=== PATIENT | male | born 1980 | race Caucasian/White ===

== ENCOUNTER 2016-05-27 14:30 | Emergency (ER) | payer BC, OTHER ==
[~2016-05-27] VITALS: Ht 195.6 cm; Wt 117.7 kg
[2016-05-27 14:36] VITALS: TEMP 37.1; Ht 195.6 cm; Wt 117.7 kg
--- NOTE | 2016-05-27 14:59 | EMERGENCY ROOM VISIT NOTE ---
History Report prepared by Kimberlee: Byron Fox Under the Supervision of: Dr. Ubaldo Man M.D. First contact with patient: 14:41 Chief Complaint: MENTAL HEALTH EVALUATION Stated Complaint: DELUSIONAL MANIX BIPOLAR EPISODE History of Present Illness The patient is a 35 year old male with a history of bipolar disorder who presents to the Emergency Room for an acute mental health evaluation today. The patient is currently having a manic episode to the point that he is becoming delusional, as per his father. The patient's states that he is worried that Satan is after him and his family. He admits that he has been hearing voices in his head. The patient has had increased stress lately, which his family believes may be contributing to his symptoms. His is expecting, and he was almost in a car accident this morning. The patient had similar manic complaints in the past. The patient has been off of his medications for two years now. His therapist is aware and is okay with him being off of his medications. He was on lithium in the past, which he did not tolerate well. The patient was admitted as an inpatient for mental health twice in the past. The patient has not been sleeping well for the past two days. He had been eating well. He states that he has been feeling depressed since this morning. The patient told his today that he wanted to , however he is not having thoughts of suicide. He also denies homicidal ideations. The patient does not have any medical complaints and denies any medical problems. He does not use tobacco, alcohol, or other drugs. Source of History: patient, family, spouse/significant other Onset: today Position: other (psyche) Quality: other (mental health evaluation) Timing: other (acute) Modifying Factors (Worsening): other (stress) Note: Denies SI or HI. Review of Systems See HPI for pertinent positives & negatives. A total of 10 systems reviewed and were otherwise negative. Past Medical & Surgical Medical Problems: (1) Bipolar disorder Old medical records were reviewed. Nurse's notes were reviewed and I agree with. Family History No pertinent family history Social History Smoking Status: Unknown if Ever Smoked Alcohol Use: none Drug Use: none Marital Status: Occupation Status: employed Current/Historical Medications Miscellaneous Medications None (Patient States No Home Meds) Allergies Coded Allergies: No Known Allergies (Unverified , 05/27/16) Physical Exam Vital Signs Date Time Temp Pulse Resp B/P Pulse Ox O2 Delivery O2 Flow Rate FiO2 05/27/16 23:59 72 16 121/76 98 05/27/16 23:06 79 12 119/78 96 05/27/16 21:00 80 14 126/70 99 05/27/16 19:00 94 14 135/82 98 05/27/16 14:36 37.1 102 20 146/86 94 Room Air Physical Exam General: Young male, no acute distress, poor eye contact, answers questions appropriately but delusionally at time. Reports hearing voices. HEENT: Normal cephalic atraumatic. Pupils are equal round and reactive to light. Sclerae anicteric. Extraocular movements are intact. Oropharynx is pink with moist mucous membranes. No swelling of the mouth lips or tongue. Neck: Supple with a midline trachea. No meningeal signs or stiffness, no JVD or bruits. No Stridor. Chest: Clear to auscultation bilaterally. No wheezes or rhonchi. No increased work of breathing. Heart: regular rate and rhythm. Abdomen: Soft nontender, nondistended without rebound guarding or rigidity. Extremities: No cyanosis clubbing or edema. No calf tenderness or assymetry Spine/Back. Non tender to palpation. No CVA tenderness Skin: Good turgor without rashes. Neurologic exam: Cranial nerves two through 12 are intact. Motor and sensation are intact and symmetrical throughout. No tremor. Psychiatric: Denies suicidal or homicidal ideations, paranoid and delusional thinking. Medical Decision & Procedures Laboratory Results 05/27/16 15:39 Red Blood Count 4.95, Mean Corpuscular Volume 83.8, Mean Corpuscular Hemoglobin 31.3, Mean Corpuscular Hemoglobin Concent 37.3, Mean Platelet Volume 10.0, Neutrophils (%) (Auto) 74.7, Lymphocytes (%) (Auto) 18.9, Monocytes (%) (Auto) 5.9, Eosinophils (%) (Auto) 0.1, Basophils (%) (Auto) 0.3, Neutrophils # (Auto) 5.20, Lymphocytes # (Auto) 1.32, Monocytes # (Auto) 0.41, Eosinophils # (Auto) 0.01, Basophils # (Auto) 0.02 05/27/16 15:39 Test 05/27/16 15:39 05/27/16 15:40 White Blood Count 6.97 K/uL (4.8-10.8) Red Blood Count 4.95 M/uL (4.7-6.1) Hemoglobin 15.5 g/dL (14.0-18.0) Hematocrit 41.5 % (42-52) Mean Corpuscular Volume 83.8 fL (80-100) Mean Corpuscular Hemoglobin 31.3 pg (25-34) Mean Corpuscular Hemoglobin Concent 37.3 g/dl (32-36) Platelet Count 183 K/uL (130-400) Mean Platelet Volume 10.0 fL (7.4-10.4) Neutrophils (%) (Auto) 74.7 % Lymphocytes (%) (Auto) 18.9 % Monocytes (%) (Auto) 5.9 % Eosinophils (%) (Auto) 0.1 % Basophils (%) (Auto) 0.3 % Neutrophils # (Auto) 5.20 K/uL (1.4-6.5) Lymphocytes # (Auto) 1.32 K/uL (1.2-3.4) Monocytes # (Auto) 0.41 K/uL (0.11-0.59) Eosinophils # (Auto) 0.01 K/uL (0-0.5) Basophils # (Auto) 0.02 K/uL (0-0.2) RDW Standard Deviation 39.1 fL (36.4-46.3) RDW Coefficient of Variation 13.0 % (11.5-14.5) Immature Granulocyte % (Auto) 0.1 % Immature Granulocyte # (Auto) 0.01 K/uL (0.00-0.02) Anion Gap 10.0 mmol/L (3-11) Est Creatinine Clear Calc Drug Dose 119.9 ml/min Estimated GFR () 89.0 Estimated GFR (Non- 76.8 BUN/Creatinine Ratio 13.1 (10-20) Calcium Level 8.6 mg/dl (8.5-10.1) Total Bilirubin 1.5 mg/dl (0.2-1) Direct Bilirubin 0.2 mg/dl (0-0.2) Aspartate Amino Transf (AST/SGOT) 19 U/L (15-37) Alanine Aminotransferase (ALT/SGPT) 36 U/L (12-78) Alkaline Phosphatase 57 U/L (45-117) Total Protein 7.2 gm/dl (6.4-8.2) Albumin 3.7 gm/dl (3.4-5.0) Lipase 82 U/L (73-393) Salicylates Level < 1.7 mg/dl (2.8-20) Acetaminophen Level < 2 ug/ml (10-30) Ethyl Alcohol mg/dL < 3.0 mg/dl (0-3) Urine Opiates Screen NEG (NEG) Urine Methadone, Qualitative NEG (NEG) Urine Barbiturates NEG (NEG) Urine Phencyclidine (PCP) Level NEG (NEG) Ur Amphetamine/Methamphetamine NEG (NEG) MDMA (Ecstasy) Screen NEG (NEG) Urine Benzodiazepines Screen NEG (NEG) Urine Cocaine Metabolite NEG (NEG) Urine Marijuana (THC) NEG (NEG) Laboratory studies as stated above per my review. ED Course 1445: Past medical records reviewed. The patient was evaluated in room A6, and a complete history and physical examination were performed. 1710: The machine adjuster leader case trim is working on placement. 1845: [facility] could not take the patient. manager salt is checking on availability in [place]. The patient appears to be more comfortable and cooperative. He just ate some food. His family and him are agreeable with the plan. 1943: The patient is still waiting on placement for the patient. Medical Decision Differential diagnosis includes bipolar, dl, anxiety, electrolyte or metabolic abnormality. This patient comes in as described above. He was placed in room A6. Here for treatment and evaluation of bipolar disorder/dl . he's been hearing voices and has a very mandaeism ideas elated to this. He's been getting gradually worse. He denies any suicidal or homicidal ideations. The patient and his family do feel he would benefit from inpatient treatment. Blood work was obtained for medical clearance. he has nothing to suggest acute electrolyte, metabolic, infectious, or toxicologic process. He was observed in the ER and seen by our psychiatric machine adjuster leader case trim. We do not have any available beds here and she has been looking for further placement. The patient has been accepted by [facility]. The family and the patient are pleased with this. The patient will be transported to [facility] for further inpatient psychiatric care and management. Impression Primary Impression: Bipolar disorder, manic Scribe Attestation The scribe's documentation has been prepared under my direction and personally reviewed by me in its entirety. I confirm that the note above accurately reflects all work, treatment, procedures, and medical decision making performed by me. Departure Information Referrals Lorne Rivera D.O. (PCP) Forms HOME CARE DOCUMENTATION FORM, IMPORTANT VISIT INFORMATION Patient Instructions My [facility]
[2016-05-27 15:49] LABS: BASO % 0.3 %; BASO ABS # 0.02 K/uL (0-0.2); COMPLETE YES; EOS % 0.1 %; HEMATOCRIT 41.5 % (42-52); IG% 0.1 %; LYMPH % 18.9 %; LYMPH ABS # 1.32 K/uL (1.2-3.4); MEAN CELL VOLUME 83.8 fL (80-100); MEAN CORPUSCULAR HEMOGLOBIN 31.3 pg (25-34); MEAN CORPUSCULAR HGB CONC 37.3 g/dl (32-36); MONO % 5.9 %; NEUT % 74.7 %; PLATELET COUNT 183 K/uL (130-400); RED BLOOD COUNT 4.95 M/uL (4.7-6.1); WHITE BLOOD COUNT 6.97 K/uL (4.8-10.8)
[2016-05-27 16:20] LABS: ACETAMINOPHEN < 2 ug/ml (10-30)
[2016-05-27 16:21] LABS: BUN/CREATININE RATIO 13.1 (10-20); CALCIUM 8.6 mg/dl (8.5-10.1); CREATININE 1.2 mg/dl (0.60-1.40); POTASSIUM 3.4 mmol/L (3.5-5.1)
[2016-05-27 16:34] LABS: BENZODIAZEPINE, URINE NEG (NEG); COCAINE,URINE NEG (NEG); PHENCYCLIDINE, URINE NEG (NEG)
[2016-05-27 23:59] VITALS: BP 121/76; PULSE 72; O2SAT 98
== END 2016-05-28 | disposition short-term general hospital (02) ==
LOC: C.EDB 14:32 → C.EDA 05-28
DX: F31.9 Bipolar disorder, unspecified (principal)